=== PATIENT | female | born 1980 | race Caucasian/White ===

== ENCOUNTER 2018-03-10 07:17 | Inpatient (IN) | payer BC ==
[~2018-03-10] VITALS: Ht 180.3 cm; Wt 108.6 kg
[2018-03-10] VITALS (47 sets, daily range): BP systolic 78–126; BP diastolic 44–553; PULSE 64–95; TEMP 98.1–99.2
[~2018-03-10 07:17] MED LIST: MOTRIN 600600 MG/TAB PO; PERCOCET 325 MG1 TA2 PO; PRENATAL1 TA7 PO; PROTONIX20 MG PO
[2018-03-10 08:36] LABS: BASO % 0.2 % (0.0-2.0); EOS # 0.2 (0.0-0.7); EOS % 1.3 % (0-4.0); GRAN # 9.4 (1.4-6.5); GRAN % 73.8 % (42.2-75.2); HEMATOCRIT 36.4 % (37.0-47.0); LYMPH # 2.4 (1.2-3.4); LYMPH % 18.5 % (20.0-51.0); MEAN CELL VOLUME 95 fl (80.0-100.0); MEAN CORPUSCULAR HEMOGLOBIN 31 pg (27.0-31.0); MEAN CORPUSCULAR HGB CONC 33 g/dl (33.0-37.0); MEAN PLATELET VOLUME 12.7 fl (7.4-10.4); MONO # 0.7 (0.1-0.6); MONO % 5.7 % (1.7-9.3); PLATELET COUNT 128 K/mm3 (130-400); RED BLOOD COUNT 3.83 M/mm3 (4.10-5.30); REDCELL DISTRIBUTION WIDTH-CV 13.2 % (11.5-14.5)
[2018-03-11 02:00] VITALS: BP 105/53; PULSE 79; TEMP 98
[2018-03-11] MEDS ORDERED: IBU800 M1 PO (07:45)
[2018-03-11] MEDS ORDERED: PERCOCET 325 MG1 TA2 PO (07:45)
[2018-03-11 08:26] VITALS: BP 114/58; PULSE 80; TEMP 97.6
[2018-03-11 16:14] VITALS: BP 114/72; PULSE 74; TEMP 98.1
== END 2018-03-11 18:55 | disposition home or self-care (01) | DRG 807 ==
LOC: LDR 07:17 → OB 20:30
PROVIDERS: Student in an Organized Health Care Education/Training Program
PROC: 10E0XZZ Delivery of Products of Conception, External Approach (ICD-10-PCS; principal; 2018-03-10)
PROC: 0KQM0ZZ Repair Perineum Muscle, Open Approach (ICD-10-PCS; 2018-03-10)
PROC: 10907ZC Drainage of Amniotic Fluid, Therapeutic from Products of Conception, Via Natural or Artificial Opening (ICD-10-PCS; 2018-03-10)
PROC: 3E033VJ Introduction of Other Hormone into Peripheral Vein, Percutaneous Approach (ICD-10-PCS; 2018-03-10)
PROC: 0UQMXZZ Repair Vulva, External Approach (ICD-10-PCS; 2018-03-10)
DX: O70.1 Second degree perineal laceration during delivery (principal); Z37.0 Single live birth; Z3A.39 39 weeks gestation of pregnancy; O71.82 Other specified trauma to perineum and vulva; O99.214 Obesity complicating childbirth; O76 Abnormality in fetal heart rate and rhythm complicating labor and delivery
CPT/HCPCS: J2590; J2795; J7120

== ENCOUNTER 2021-09-07 07:51 | Day surgery (SDC) | payer OTHER ==
[~2021-09-07] VITALS: Ht 182.9 cm; Wt 87.4 kg
[~2021-09-07 07:51] MED LIST changes: +AMOXICILLIN 8751 TAB; +IBU800 M1 PO; +LINZESS290CAP; +NEURONTIN100 MG/CAP PO; +NORCO 325 MG-51 TAB PO
[2021-09-07 08:04] VITALS: BP 105/44; PULSE 67; TEMP 97.5
[2021-09-07] MEDS ORDERED: LINZESS72 MCG PO (08:15)
[2021-09-07 09:25] VITALS: BP 103/30; PULSE 69; TEMP 98.6
--- NOTE | 2021-09-07 09:25 | NUR ---
TO BAY [address] [facility] ROOM. PT WALKED TO CHAIR, NO C/O, CALL LIGHT IN REACH. TAKES JUICE AND SNACK
[2021-09-07 09:40] VITALS: BP 101/65; PULSE 62
--- NOTE | 2021-09-07 09:40 | NUR ---
INTO TALK WITH PT ON RESULTS AND RECOMMONDATIONS, OFFICE WILL CALL PT LATER AFTER LOOKIN AT RESULTS.
[2021-09-07 09:55] VITALS: BP 106/67; PULSE 59
--- NOTE | 2021-09-07 10:00 | NUR ---
IV D'CD INTACT, REVIEWED DISCHARGE INST. WITH PT ON PRECAUTIONS TODAY, AND COLONOCOPY DC REVIEW ORDERS WITH VERBAL UNDERSTANDING. PT UP AND DRESSED, TO B/R AND THEN DISCAHRGED VIA W/C TO CAR AT 1005
== END 2021-09-07 10:05 | disposition home or self-care (01) ==
LOC: SDCO 07:51
DX: K62.89 Other specified diseases of anus and rectum (principal); K59.00 Constipation, unspecified
CPT/HCPCS: J2704; J7120

== ENCOUNTER → 2023-01-30 | Outpatient (CLI) | payer OTHER ==
[~2023-01-30] MED LIST changes: +LINZESS72 MCG PO
== END ==
LOC: CANSCHCLI → COL.RAD 07:54 → MC.RAD 07:54 → COL.RAD 08:15 → MC.RAD 08:15
DX: Z12.31 Encounter for screening mammogram for malignant neoplasm of breast (principal); N63.20 Unspecified lump in the left breast, unspecified quadrant